=== PATIENT | female | born 1990 | race Caucasian/White ===

== ENCOUNTER 2020-11-16 00:53 | Emergency (ER) | payer OTHER ==
[2020-11-16 01:07] VITALS: TEMP 98.1; BMI 28.8
[2020-11-16] MEDS ORDERED: methylPREDNISolone NA SUCC 125 MG/2 ML VIAL IVPUSH ONE (01:09)
[2020-11-16] MEDS ORDERED: methylPREDNISolone NA SUCC 125 MG/2 ML VIAL ONE (01:09)
[2020-11-16 02:44] VITALS: PULSE 60
[2020-11-16 05:14] VITALS: BP 109/62
== END 2020-11-16 05:22 | disposition home or self-care (01) ==
LOC: JER 00:53
PROC: 3E033GC Introduction of Other Therapeutic Substance into Peripheral Vein, Percutaneous Approach (ICD-10-PCS; principal; 2020-11-16)
DX: T78.40XA Allergy, unspecified, initial encounter (principal)
CPT/HCPCS: 99284-25